=== PATIENT | female | born 1965 | race Caucasian/White ===

== ENCOUNTER 2020-10-07 23:21 | Emergency (ER) | payer OTHER, SELFPAY ==
[2020-04-03 09:07] VITALS: BMI 28.3
[2020-10-07 23:22] VITALS: BP 167/92; PULSE 69; RESP 16; TEMP 36.6; O2SAT 99; BMI 28.0
[2020-10-07 23:42] LABS: Bacteria 0 SEEN /hpf (None Seen); Mucous, Urine 0 SEEN /hpf (<or=2+)
[2020-10-07 23:51] LABS: Color, Urine Yellow (Yellow); Glucose, Dipstick Normal (Normal); Ketone-Dipstick Negative (Negative); Leukocyte Esterase-Dipstick 500 /ul (Negative); Nitrite-Dipstick Negative (Negative); Occult Blood-Urine 10 /ul (Negative); Protein-Dipstick Negative (Negative); Specific Gravity, Urine 1.015 (1.002-1.030); Urine Bilirubin Dipstick Negative (Negative); Urine Clarity Clear (Clear); Urine Urobilinogen Normal (Normal)
[2020-10-07 23:53] LABS: Red Blood Cells-Urine 0-5 SEEN /hpf (0-5); Squamous Epithelial Cells - UA 0-5 SEEN /hpf (5-10); White Blood Cells 5-10 SEEN /hpf (0-5)
[2020-10-08 00:02] LABS: Absolute Neutrophil Count 4.2 X10^3/uL (2.0-7.7); Basophil# 0.02 X10^3/uL; Basophil% 0.3 % (0-1); Eosinophil# 0.11 X10^3/uL; Eosinophils% 1.4 % (0-5); Hemoglobin 14.1 g/dL (12.0-15.0); Lymphocyte % 37.6 % (19-41); Mean Corpuscular Hgb 29.4 pg (27.0-32.0); Mean Corpuscular Volume 91.7 fL (81-99); Mean Platelet Vol. 8.7 fl (6.2-12.0); Monocyte# 0.59 X10^3/uL; Monocyte% 7.4 % (0-10); NRBC Flagged by Analyzer 0 % (0-5); Neutrophil # 4.23 X10^3/uL (2.7-7.7); Platelet Count 269 K/mm3 (150-450); RBC Distribution Width CV 11.9 % (11.6-14.6); RBC Distribution Width SD 40.3 fl (35.1-43.9)
[2020-10-08 00:23] LABS: AST(SGOT) 21 U/L (15-37); Alanine Aminotransfer ALT/SGPT 18 U/L (13-56); Alkaline Phosphatase 115 U/L (45-117); Anion Gap 7 (5-15); BUN 18 mg/dL (7-18); BUN/Creat Ratio 15.4 RATIO (10-20); Calcium,Total 10.2 mg/dL (8.5-10.1); Chloride 105 mmol/L (98-107); Creatinine, Serum 1.17 mg/dL (0.55-1.02); EST Glomerular Filtration Rate 51 mL/min (>60); Est Glom Filt Rate - Afr Amer 62 mL/min (>60); Estimated Creatinine Clearance 50.86 ml/min; Glucose 90 mg/dL (74-106); Lipase 96 U/L (73-393); Potassium 4.5 mmol/L (3.5-5.1); Sodium Level 140 mmol/L (136-145); Total Bilirubin < 0.10 mg/dL (0.20-1.00)
--- NOTE | 2020-10-08 01:31 | EDS_ITS ---
HPI History of Present Illness Chief Complaint: General Illness Informant: patient and spouse/S.O. Narrative Narrative: 55-year-old female states that about 10 days ago she was leaning back at the salon to get her hair washed when she felt a pop in her low back. She states it radiated around to the bilateral sides. She notes that there is discomfort heading anteriorly down to the lower pelvis. She notes no radicular symptoms to the legs. She denies any urinary symptoms. No fevers. No diarrhea. No rashes. PFSH PFS Medical History Abdominal pain GERD (gastroesophageal reflux disease) Home Medications cholecalciferol (vitamin D3) [Vitamin D3] 50 mcg PO DAILY 10/07/20 [History Last Taken Unknown] esomeprazole magnesium [Nexium] 20 mg PO DAILY 10/07/20 [History Last Taken Unknown] ibuprofen 600 mg PO Q6H PRN 10/07/20 [History Last Taken Unknown] hydrocodone-acetaminophen 1 tab PO Q6H PRN PRN 3 Days #12 tablet 10/08/20 [Rx Last Taken Unknown] Allergy/AdvReac Type Severity Reaction Status Date / Time cephalexin [From Keflex] Allergy Other Verified 10/07/20 23:26 latex Allergy Hives Verified 10/07/20 23:26 no surgical history (Noncontributory) Social History (Updated 10/08/20 @ 01:[address] Karthik Angelo DO) Smoking Status: Never smoker substance use type: does not use ROS ROS ED Constitutional Constitutional ED: Denies chills or weight loss Eyes Eyes: Denies change in vision or diplopia ENT ENT ED: Denies ear pain, rhinorrhea or sore throat Cardiovascular Cardiovascular: Denies chest pain, orthopnea, palpitations or racing heartbeat Respiratory/Chest Respiratory/Chest: Denies cough, dyspnea or orthopnea Gastrointestinal Gastrointestinal: Reports abdominal pain; Denies diarrhea, nausea or vomiting Genitourinary Genitourinary ED: Denies dysuria, hematuria or urinary frequency Musculoskeletal Musculoskeletal: Reports back pain; Denies arthralgias or myalgias Integumentary Denies abscess or rash Neurologic Neurologic: Denies headache(s) or weakness Psychiatric Psychiatric: Denies anxiety, depression, suicidal ideation or suicidal thoughts Endocrine Endocrinology: Denies polydipsia, polyphagia or polyuria Allergic/Immunologic Allergic/Immunologic ED: Denies mouth swelling, tongue swelling or urticaria EXAM Physical Exam Const Vital Signs: 10/07/20 23:22 10/07/20 23:43 Temperature 97.9 F Temperature Source Temporal Pulse Rate 69 Respiratory Rate 16 Respiratory Effort Normal Respiratory Pattern Normal Blood Pressure 167/92 H Blood Pressure Mean 117 Pulse Ox 99 Oxygen Delivery Method Room Air Positive well nourished and well developed General Appearance ED: well developed HEENT Reports normocephalic, head/scalp atraumatic and moist mucous membranes Eyes PERRL and EOMs intact bilaterally Neck no lymphadenopathy, supple and no JVD Resp normal respiratory effort and clear to auscultation bilaterally Cardio regular rate, regular rhythm and no murmurs GI normal to inspection, nondistended, normoactive bowel sounds and non-tender Palpation: soft Back/Spine no CVA tenderness and normal ROM Extremity normal to inspection General Extremety ED: Negative for edema General Extremity: Negative for edema Neuro oriented x3 and CN's II-XII intact bilaterally Sensorium / Orientation: alert Motor Exam: strength 5/5 throughout Psych mental status grossly normal Mood & Affect: Negative for depressed or tearful Skin no rashes or lesions noted and no wounds MDM MDM MDM Narrative Medical decision making narrative: Basic blood work obtained is essentially negative. 5-10 white cells noted in the urine but no overt infection. CT the abdomen pelvis demonstrated a 16 mm hypodense right adrenal nodule. Also demonstrated an area of the descending colon consistent with epiploic appendagitis. She also has a hiatal hernia. Nothing other of these findings would be consistent with her presenting pain. Patient will be given a prescription for pain medication. She will follow-up with primary care if continued symptoms return if worsening. Lab Data Attestation: I reviewed the patient's lab results. Labs: Laboratory Results - last 24 hr 10/07/20 10/07/20 10/07/20 23:30 23:52 23:52 WBC 8.0 RBC 4.80 Hgb 14.1 Hct 44.0 MCV 91.7 MCH 29.4 MCHC 32.0 RDW Std Deviation 40.3 RDW Coeff of Gracie 11.9 Plt Count 269 MPV 8.7 Immature Gran % (Auto) 0.300 Neut % (Auto) 53.0 Lymph % (Auto) 37.6 [place] % (Auto) 7.4 Eos % (Auto) 1.4 Baso % (Auto) 0.3 Absolute Neuts (auto) 4.2 Absolute Lymphs (auto) 3.00 Nucleated RBC % 0 Sodium 140 Potassium 4.5 Chloride 105 Carbon Dioxide 28.0 Anion Gap 7 BUN 18 Creatinine 1.17 H Estim Creat Clear Calc 50.86 Est GFR (MDRD) Af Amer 62 Est GFR (MDRD) Non-Af 51 L BUN/Creatinine Ratio 15.4 Glucose 90 Calcium 10.2 H Total Bilirubin < 0.10 L AST 21 ALT 18 Alkaline Phosphatase 115 Total Protein 8.0 Albumin 4.0 Globulin 4.0 Albumin/Globulin Ratio 1.0 Lipase 96 Urine Color Yellow Urine Clarity Clear Urine pH 5.0 Ur Specific [place] 1.015 Urine Protein Negative Urine Glucose (UA) Normal Urine Ketones Negative Urine Occult Blood 10 H Urine Nitrite Negative Urine Bilirubin Negative Urine Urobilinogen Normal Ur Leukocyte Esterase 500 H Urine RBC 0-5 SEEN Urine WBC 5-10 SEEN Ur Squamous Epith Cells 0-5 SEEN Urine Bacteria 0 SEEN Urine Mucus 0 SEEN Radiography Diagnostic Testing: Radiology Impression Abdomen/Pelvis CT 10/08/20 23:38 IMPRESSION: Focal area of indurated fat anterior to the descending colon likely representing epiploic appendigitis. 16 mm hypodense lesion within the medial limb of the right adrenal gland. Although it likely represents a benign adenoma that diagnosis cannot be concluded upon based on current imaging parameters. Recommend comparison any previous cross-sectional imaging through the adrenal glands. No previous imaging consider a multiphase CT scan versus an MRI of the adrenal glands within and out of phase imaging. Small moderate-sized gastric hiatal hernia. Individualized dose optimization techniques were used for this CT. at 0114 Reported and signed by: Robert Zepeda MD Electronically Signed: Robert Zepeda MD at 1:13 EDT Tel , Service support , Discharge Plan Triage Chief Complaint: General Illness ED Provider: Karthik Aneglo Dx/Rx/DC Orders Clinical Impression: Abdominal pain, acute, Acute bilateral low back pain, Epiploic appendagitis, Adrenal nodule Instructions: ED Abdominal Pain Unkn Cause Fem Prescriptions: New hydrocodone-acetaminophen [hydrocodone-acetaminophen] 1 TABLET tablet 1 tab PO Q6H PRN PRN (Reason: Pain) 3 Days Qty: 12 RF: 0 No Action esomeprazole magnesium [Nexium] 20 mg Capsule,Delayed Release(Dr/Ec) 20 mg PO DAILY RF: 0 cholecalciferol (vitamin D3) [Vitamin D3] 50 mcg (2,000 unit) Tablet 50 mcg PO DAILY RF: 0 ibuprofen 600 mg Tablet 600 mg PO Q6H PRN (Reason: Pain) RF: 0 Primary Care Provider: Saulo Hartman Referrals: Saulo Hartman, [Primary Care Provider] - As soon as possible Disposition Disposition: Home, self care
[2020-10-08 01:59] VITALS: BP 125/84; PULSE 74; RESP 16; TEMP 36.6; O2SAT 99
[2020-10-08 02:01] VITALS: RESP 16
--- NOTE | 2020-10-08 23:38 | CT_ITS ---
HISTORY: abdominal pain TECHNIQUE: Helically acquired images were obtained of the abdomen and pelvis following the intravenous administration of 100 ML of Isovue-370 Iodinated contrast. 2D reformats. No oral contrast was administered. A radiation dose optimization technique was used for this scan. COMPARISON: None FINDINGS: # of images incl. paperwork: [id number] LUNG BASES: Clear. CT abdomen: Small moderate-sized gastric and paraesophageal hernia Bones are unremarkable. The gallbladder remains. Liver, spleen, pancreas, and left adrenal gland, are normal. A 16 mm hypodense right adrenal nodule has a central density of 14 Hounsfield units. Although this cannot be histologically proven to be a benign adenoma based on current imaging parameters, this is likely a benign adenoma. Recommend comparison to any previous imaging. In the absence of previous imaging consider follow-up imaging with either a multiphase CT scan or MRI of the adrenal glands. Both kidneys excrete contrast into nondilated systems already at the first pass.. The aorta is normal. CT pelvis: No ascites is present. The appendix is normal. Series 2 image 71. The uterus and ovaries are not pathologically enlarged. The bladder is adequately distended, and already demonstrated mixing of urine with excreted intravascular contrast. Bowel gas pattern is normal. Anterior to the descending colon, near the inferior aspect of the descending colon, within the pelvis, there is a focal area of indurated fat measuring 2.5 cm, coronal series 601 image 31, axial series [address]/Abdomen/Pelvis W IV Cont ONLY IMPRESSION: Focal area of indurated fat anterior to the descending colon likely representing epiploic appendigitis. 16 mm hypodense lesion within the medial limb of the right adrenal gland. Although it likely represents a benign adenoma that diagnosis cannot be concluded upon based on current imaging parameters. Recommend comparison any previous cross-sectional imaging through the adrenal glands. No previous imaging consider a multiphase CT scan versus an MRI of the adrenal glands within and out of phase imaging. Small moderate-sized gastric hiatal hernia. Individualized dose optimization techniques were used for this CT. at 0114 Reported and signed by: Robert Zepeda MD Electronically Signed: Robert Zepeda MD at 1:13 EDT Tel , Service support ,
== END 2020-10-08 02:15 | disposition home or self-care (01) ==
PROVIDERS: Emergency Provider Emergency Medicine; PCP Family Medicine
DX: M54.5 Low back pain (principal); R10.9 Unspecified abdominal pain; K63.89 Other specified diseases of intestine; E27.9 Disorder of adrenal gland, unspecified; K21.9 Gastro-esophageal reflux disease without esophagitis; K44.9 Diaphragmatic hernia without obstruction or gangrene
CPT/HCPCS: 74177; 80053; 81001; 83690; 85025; 99284; Q9967; A4216